=== PATIENT | female | born 1960 | race Caucasian/White ===

== ENCOUNTER 2016-07-10 09:26 | Day surgery (SDC) | payer OTHER ==
[~2016-07-10] VITALS: Ht 165.1 cm; Wt 73.4 kg
--- NOTE | ~2016-07-10 | HP ---
ADMIT: 07/10/2016 RM/LOC: [facility] MR#: [id number] [facility] [address] [address] ANI COX [address] [place], [place] [address] Pre-OP History and Physical SEX: F AGE: 55 : 1960 DATE OF SERVICE: HISTORY: This is a 55-year-old female seen in surgical consultation with complaints of right upper quadrant abdominal pain. This has been present intermittently for two years now and has worsened recently in severity and frequency. Now virtually anything she eats causes the pain. She had an ultrasound performed which showed a gallbladder filled with gallstones. Common duct and gallbladder wall were normal. PAST MEDICAL HISTORY: Hypothyroidism. CURRENT MEDICATIONS: 1. Venlafaxine. 2. Multivitamin. ALLERGIES: NO KNOWN MEDICAL ALLERGIES. PRIOR SURGICAL HISTORY: Breast surgery. FAMILY HISTORY: Significant for colon polyps. SOCIAL HISTORY: She does drink occasional alcohol and does not smoke. REVIEW OF SYSTEMS: A 10-point review of systems is performed. The abdominal pain as mentioned above and the remainder of the review of systems is negative for recent change. PHYSICAL EXAMINATION: GENERAL: Ani is alert, oriented, and in no acute distress. Her vital signs are stable and she is afebrile. HEENT: Sclerae appear anicteric. NECK: Supple without lymphadenopathy. ADMIT: 07/10/2016 RM/LOC: [facility] MR#: [id number] [address] [place] [id number] ANI COX [address] [place] [address] Pre-OP History and Physical SEX: F AGE: 55 : 1960 LUNGS: Clear bilaterally. HEART: Regular rate and rhythm. ABDOMEN: Tender to palpation in the right upper quadrant without peritoneal sign or palpable mass. EXTREMITIES: Neurovascularly intact x4. IMPRESSION: Symptomatic cholelithiasis. PLAN: I have recommended proceeding with laparoscopic cholecystectomy. I discussed risks of that with Ani including bleeding, infection, damage to intraabdominal organs including the biliary tree, and conversion to an open procedure. She understands all of these things and does wish to proceed. Juwan Lyman MD/ ajit JOB #: [id number] CC: Juwan Lyman, Attending Physician Alexys Huitron, Family Physician
--- NOTE | 2016-07-15 11:05 | OR ---
ADMIT: 07/10/2016 RM/LOC: [facility] MR#: [id number] [facility] [address] [address] ANI COX [address] [place] [address] Operative/Delivery Room Report SEX: F AGE: 55 : 1960 SURGERY DATE: 07/10/2016 SURGEON: Juwan Lyman MD PREOPERATIVE DIAGNOSIS: Cholelithiasis. POSTOPERATIVE DIAGNOSIS: Cholelithiasis. PROCEDURE: Laparoscopic cholecystectomy. [employer]: JENN Ladd, whose assistance was necessary for laparoscopic visualization and tissue retraction. ANESTHESIA: General endotracheal. ESTIMATED BLOOD LOSS: 10 mL. DESCRIPTION OF PROCEDURE: The patient was taken to the operating room and placed supine on the operating room table. General anesthesia was established. The abdomen was prepped and draped in the standard surgical fashion. A 5 mm infraumbilical incision was made in the skin. The fascia was grasped with Poncho clamp, and a Veress needle was advanced into the peritoneal cavity. Carbon dioxide was used to insufflate the abdomen to 15 mmHg pressure. The Veress needle was withdrawn, and a 5 mm Optiview trocar was placed. Laparoscope was advanced and showed again intraperitoneal position with no damage to underlying structures. Next, an 11 mm subxiphoid port, two right lateral 5 mm ports, were placed under visualization. The gallbladder was retracted cephalad. This was markedly distended and full of stones. The cystic duct was skeletonized and the view of safety was obtained. The cystic duct was doubly clipped distally, singly clipped proximally, and divided. The cystic artery was skeletonized, doubly clipped proximally, ADMIT: 07/10/2016 RM/LOC: [facility] MR#: [id number] [address] [place] [address] [place], [place] [address] ANI COX [address] [place] [address] Operative/Delivery Room Report SEX: F AGE: 55 : 1960 singly clipped distally, and divided. The gallbladder was excised from the gallbladder fossa with Bovie cautery. It was placed in an EndoCatch bag and removed through the subxiphoid port site. The right upper quadrant was irrigated. There was no evidence of bleeding. No evidence of bile leak, and the clips remained intact on the cystic duct and artery. The ports were removed under visualization without evidence of bleeding. The abdomen was allowed to deflate after closure of the 11 mm port site fascial margins with 0 Vicryl suture and the suture passer. Skin edges were approximated with 4-0 Monocryl in a subcuticular fashion and Dermabond. Local anesthetic was injected at the incisions. Sponge, needle, and instrument counts were correct at the end of the case. The patient tolerated the procedure well and transferred to the recovery area in stable condition. Juwan Lyman MD/ ajit JOB #: [id number] CC: Juwan Lyman, Attending Physician Alexys Huitron, Family Physician
== END 2016-07-10 13:50 | disposition home or self-care (01) ==
LOC: SSS 09:26
PROC: 0FT44ZZ Resection of Gallbladder, Percutaneous Endoscopic Approach (ICD-10-PCS; principal; 2016-07-10)
DX: K80.10 Calculus of gallbladder with chronic cholecystitis without obstruction (principal); E03.9 Hypothyroidism, unspecified; F32.9 Major depressive disorder, single episode, unspecified; Z98.890 Other specified postprocedural states; Z79.899 Other long term (current) drug therapy